=== PATIENT | female | born 1930 | race Caucasian/White ===

== ENCOUNTER 2016-12-06 11:29 | Emergency (ER) | payer MEDICARE, BC, OTHER ==
[~2016-12-06] VITALS: Ht 167.6 cm; Wt 75.0 kg
[~2016-12-06 11:29] MED LIST: BRIN1SUS2 LEFT EYE; CLON.1 PO; GUAN1 PO; METF850 PO; METR-1 PO; NITR0.4S SL; STOO100C PO; TIMO0.5S6 EACH EYE; TRAM50 PO
[2016-12-06 11:47] VITALS: BP 148/72; PULSE 95; RESP 18; TEMP 98.7; O2SAT 98
[2016-12-06] MEDS ORDERED: METO25TA3 PO (11:52)
[2016-12-06] MEDS ORDERED: ALPR0.25 PO (11:52)
[2016-12-06] MEDS ORDERED: METF850T PO (11:52)
[2016-12-06] MEDS ORDERED: ATOR20TA15 PO (11:52)
--- NOTE | 2016-12-06 12:01 | PD ---
HPI Chief Complaint: Medical Clearance Time Seen by Provider: 11:53 Travel History International Travel<30 days: No Contact w/Intl Traveler<30days: No Traveled to known affect area: No History of Present Illness HPI 86-year-old female presents to the emergency room via ambulance under a Martinez act initiated by [place] police department. According to Martinez act, patient called 911 2 times today stating that she did not know where she was. When the superintendent police showed up at her house, she was under the impression that she was at a furniture store and had to be reassured that she was home. Patient states she believes she was having a dream. Patient lives alone. She reports a fall 3-4 days ago where she lost her balance and struck the right side of her head and hip on the door. Patient denies loss of consciousness. States she was not bleeding and therefore did not come to the emergency room. She has been ambulatory since falling. Denies any new or worsening paresthesias. Patient has chronic right upper extremity paresthesia from shoulder fracture 2 years ago. History of hypertension, rheumatoid arthritis, and diabetes. Patient can state her name, birthday, the cattle and wheat farmer, and the day of the week. She stated it is 2015 and could not give the date. Denies suicidal or homicidal ideation. Patient uses a walker because of rheumatoid arthritis. PFSH Past Medical History Arthritis: Yes (RA) Heart Rhythm Problems: Yes Cancer: Yes (Skin) Cardiovascular Problems: Yes Chemotherapy: No Chest Pain: Yes Cerebrovascular Accident: No Diminished Hearing: Yes ([place]) Endocrine: Yes Fibromyalgia: Yes Gastrointestinal Disorders: Yes GERD: Yes Genitourinary: Yes Headaches: Yes Hypertension: Yes Immune Disorder: Yes (Lupus/ RA) Neurologic: Yes Respiratory: Yes Immunizations Current: Yes Migraines: Yes (with aura) Radiation Therapy: No Ulcer: Yes (COLITIS) Past Surgical History Cholecystectomy: Yes Gynecologic Surgery: Yes (Hysterectomy) Hysterectomy: Yes Oral Surgery: No Other Surgery: Yes (BLADDER LIFTED, BREAST REDUCTION) Social History Alcohol Use: No Tobacco Use: No Substance Use: No Allergies-Medications (Allergen,Severity, Reaction): Coded Allergies: Cipro (Verified Adverse Reaction, Severe, Nausea/Vomiting, 12/06/16) Sulfa (Verified Adverse Reaction, Severe, Nausea/Vomiting, 12/06/16) Aspirin (Verified Adverse Reaction, Unknown, GI, 12/06/16) COLITIS Reported Meds & Prescriptions Reported Meds & Active Scripts Active Reported Atorvastatin (Atorvastatin Calcium) 20 Mg Tab 20 Mg PO HS Metformin (Metformin HCl) 850 Mg Tab 850 Mg PO DAILY With a meal Metoprolol Tartrate 25 Mg Tab 25 Mg PO BID Alprazolam 0.25 Mg Tab 0.25 Mg PO TID PRN Review of Systems Except as stated in HPI: all other systems reviewed are Neg Physical Exam Narrative GENERAL: Well-nourished, well-developed, elderly female in no acute distress. Afebrile. SKIN: Warm and dry. There is a moderate amount of old appearing ecchymosis to the right temporal region. There is in mild to moderate area of ecchymosis to the right lateral hip. HEAD: Normocephalic. EYES: No scleral icterus. No injection or drainage. NECK: Supple, trachea midline. No JVD or lymphadenopathy. CARDIOVASCULAR: Regular rate and rhythm without murmurs, gallops, or rubs. RESPIRATORY: Breath sounds equal bilaterally. No accessory muscle use. NEUROLOGICAL: Awake and alert. Cranial nerves II through XII intact. Motor and sensory grossly within normal limits. Normal speech. PSYCHIATRIC: No delusional thought processes. No hallucinations. Data Data Last Documented VS Vital Signs Date Time Temp Pulse Resp B/P Pulse Ox O2 Delivery O2 Flow Rate FiO2 12/06/16 16:00 90 14 140/64 95 Room Air 12/06/16 11:47 98.7 Orders Complete Blood Count With Diff (12/06/16 11:52) Basic Metabolic Panel (Bmp) (12/06/16 11:52) Urinalysis - C+S If Indicated (12/06/16 11:52) Drug Screen, Random Urine (12/06/16 11:52) Alcohol (Ethanol) (12/06/16 11:52) Psych Screen (12/06/16 11:52) Ct Brain W/O Iv Contrast(Rout) (12/06/16 ) Hip, Uni(Ap&Lat) W Ap Pelvis (12/06/16 ) Labs Laboratory Tests Test 12/06/16 12/06/16 12:03 15:49 White Blood Count 7.5 TH/MM3 Red Blood Count 4.41 MIL/MM3 Hemoglobin 14.1 GM/DL Hematocrit 40.7 % Mean Corpuscular Volume 92.1 FL Mean Corpuscular Hemoglobin 32.0 PG Mean Corpuscular Hemoglobin 34.8 % Concent Red Cell Distribution Width 12.3 % Platelet Count 163 TH/MM3 Mean Platelet Volume 8.4 FL Neutrophils (%) (Auto) 60.2 % Lymphocytes (%) (Auto) 31.6 % Monocytes (%) (Auto) 5.0 % Eosinophils (%) (Auto) 2.7 % Basophils (%) (Auto) 0.5 % Neutrophils # (Auto) 4.5 TH/MM3 Lymphocytes # (Auto) 2.4 TH/MM3 Monocytes # (Auto) 0.4 TH/MM3 Eosinophils # (Auto) 0.2 TH/MM3 Basophils # (Auto) 0.0 TH/MM3 CBC Comment DIFF FINAL Differential Comment Sodium Level 140 MEQ/L Potassium Level 4.1 MEQ/L Chloride Level 106 MEQ/L Carbon Dioxide Level 27.7 MEQ/L Anion Gap 6 MEQ/L Blood Urea Nitrogen 15 MG/DL Creatinine 0.86 MG/DL Estimat Glomerular Filtration 62 ML/MIN Rate Random Glucose 121 MG/DL Calcium Level 9.4 MG/DL Ethyl Alcohol Level LESS THAN 3 MG/DL Urine Color YELLOW Urine Turbidity CLEAR Urine pH 5.0 Urine Specific Elizabeth 1.014 Urine Protein NEG mg/dL Urine Glucose (UA) NEG mg/dL Urine Ketones NEG mg/dL Urine Occult Blood NEG Urine Nitrite NEG Urine Bilirubin NEG Urine Urobilinogen LESS THAN 2.0 MG/DL Urine Leukocyte Esterase SMALL Urine RBC 1 /hpf Urine WBC 6 /hpf Urine Squamous Epithelial 1 /hpf Cells Urine Bacteria RARE /hpf Microscopic Urinalysis Comment CULT NOT INDICATED Urine Opiates Screen NEG Urine Barbiturates Screen NEG Urine Amphetamines Screen NEG Urine Benzodiazepines Screen POS Urine Cocaine Screen NEG Urine Cannabinoids Screen NEG MDM Medical Decision Making Medical Screen Exam Complete: Yes Emergency Medical Condition: Yes Medical Record Reviewed: Yes Differential Diagnosis Martinez act versus dementia versus Alzheimer's disease versus fall versus intracranial hemorrhage Narrative Course 86-year-old female presents to the emergency room the ambulance under a Martinez Act initiated by Police Department after patient called stating that she did not know where she was. She believes she was waking from a dream. Patient was Martinez acted out of fear that she is unable to care for herself as she lives alone. Denies suicidal or homicidal ideation. She states she just wants to go home and doesn't need to be here. Patient is alert and oriented. Vital signs stable. She can give her birthday, name, day of the week, location, and president. She wasn't able to give the correct year (2015) or date. She reports trip and fall 3-4 days ago but denies loss of consciousness. There is ecchymosis over the right temporal lobe and right hip. CT brain is negative for acute abnormality. She has been ambulatory and there is no significant right hip pain; x-ray of the hip is negative. CBC and BMP are completely unremarkable. Drug screen is positive for benzodiazepine, patient takes alprazolam at night for sleep. Alcohol is negative. UA shows no significant evidence of infection. She is medically clear for psychiatric evaluation. Patient is stable for discharge from psychiatric standpoint. There are no medical indications for admission at this time. She has a close family friend who visits the house several times daily to care for her and her son calls several times daily to speak with her. She is stable for discharge. Diagnosis Primary Impression: Medical clearance for psychiatric admission Referrals: Primary Care Physician Patient Instructions: General Instructions, Medical Clearance for Psychiatric Care (ED) Additional Instructions: Rest and drink plenty of fluids. Return to the emergency room for worsening symptoms. Disposition: 01 DISCHARGE HOME Condition: Stable Lianne Miller Dec 06, 2016 12:01
[2016-12-06 12:29] LABS: AUTOMATED NEUTROPHIL # 4.5 TH/MM3 (1.8-7.7); BASOPHIL % 0.5 % (0.0-2.0); EOSINOPHIL # 0.2 TH/MM3 (0-0.4); EOSINOPHIL % 2.7 % (0.0-4.0); HEMATOCRIT 40.7 % (35.0-46.0); HEMO FLAGS DIFF FINAL; LYMPH % 31.6 % (9.0-44.0); LYMPHOCYTE # 2.4 TH/MM3 (1.0-4.8); MEAN CELL VOLUME 92.1 FL (80.0-100.0); MEAN CORPUSCULAR HGB CONC 34.8 % (32.0-36.0); NEUT % 60.2 % (16.0-70.0); PLATELET COUNT 163 TH/MM3 (150-450); RED BLOOD COUNT 4.41 MIL/MM3 (4.00-5.30); RED CELL DISTRIBUTION WIDTH 12.3 % (11.6-17.2); WHITE BLOOD COUNT 7.5 TH/MM3 (4.0-11.0)
[2016-12-06 12:43] LABS: ANION GAP 6 MEQ/L (5-15); BICARBONATE 27.7 MEQ/L (21.0-32.0); BLOOD UREA NITROGEN 15 MG/DL (7-18); CHLORIDE 106 MEQ/L (98-107); GLOMERULAR FILTRATION RATE 62 ML/MIN (>89); POTASSIUM 4.1 MEQ/L (3.5-5.1); SODIUM (NA) 140 MEQ/L (136-145)
--- NOTE | 2016-12-06 12:57 | RADRPT ---
EXAM DATE/TIME: 12/06/2016 12:31 [facility] COMPARISON: CT BRAIN W/O CONTRAST, August 02, 2016, 10:54. INDICATIONS : Fall four days ago. RADIATION DOSE: 41.37 CTDIvol (mGy) MEDICAL HISTORY : Cardiovascular disease. Hypertension. Lupus. SURGICAL HISTORY : None. ENCOUNTER: Initial ACUITY: 4 - 6 days PAIN SCALE: 4/10 LOCATION: cranial TECHNIQUE: Multiple contiguous axial images were obtained of the head. Using automated exposure control and adj ustment of the mA and/or kV according to patient size, radiation dose was kept as low as reasonably a chievable to obtain optimal diagnostic quality images. FINDINGS: CEREBRUM: The ventricles are normal for age with diffuse moderate atrophic change. There is sulcal and ventricu lar prominence. There are chronic small vessel ischemic changes again noted. No evidence of midline s hift, mass lesion, hemorrhage or acute infarction. No extra-axial fluid collections are seen. POSTERIOR FOSSA: The cerebellum and brainstem are intact. The 4th ventricle is midline. The cerebellopontine angle i s unremarkable. EXTRACRANIAL: The visualized portion of the orbits is intact. SKULL: The calvaria is intact. No evidence of skull fracture. CONCLUSION: 1. No acute hemorrhage, mass or acute infarction. 2. Chronic atrophic change and small vessel ischemic change. Irvin Mcneal MD on December 06, 2016 at 12:53 Board Certified Radiologist. This report was verified electronically.
--- NOTE | 2016-12-06 14:27 | RADRPT ---
EXAM DATE/TIME: 12/06/2016 13:14 [facility] COMPARISON: No previous studies available for comparison. INDICATIONS : Fall. Pain right hip MEDICAL HISTORY : AMS SURGICAL HISTORY : unobtainable ENCOUNTER: Initial ACUITY: 1 day PAIN SCORE: 7/10 LOCATION: Right hip FINDINGS: Examination of the right hip was performed with AP Pelvis. The primary and secondary trabecular luis sam of the femoral neck is intact. The hip joint is of normal width without significant sclerosis or bony hypertrophy. The acetabulum is grossly intact. CONCLUSION: Negative trauma study. Irvin Mcneal MD on December 06, 2016 at 14:25 Board Certified Radiologist. This report was verified electronically.
[2016-12-06 16:00] VITALS: BP 140/64; PULSE 90; RESP 14; O2SAT 95
--- NOTE | 2016-12-06 16:06 | PD ---
History of Present Illness Chief Complaint: Medical Clearance Time Seen by Provider: 16:02 Travel History International Travel<30 Days: No Contact w/Intl Traveler<30days: No Known affected area: No Legal Status Legal Status: Martinez Act Martinez Act Signed By: Mya Quezada History of Present Illness: History of Present Illness 86-year-old female with no reported psychiatric history who presents to the emergency room via ambulance under a [place] act initiated by [place] police department. According to Martinez act, patient called 911 twice today stating that she did not know where she was and that she believed she was in a furniture store. Patient cleared up and was alert and oriented while the police were there but nevertheless she was brought to ED for evaluation. She reported that she had fallen a couple of days ago and hit her head. Patient has been medically cleared. As per EMR she has had no previous contact with [facility] psychiatric department. Patient is seen in main Ed. She is alert, oriented x4. She is able to name the President, hospital . She states " I made a mistake and I called the police. I woke up and I was confused but it went away". Speech is clear and able to answer questions appropriately. She is able to give me the phone number of her friend, Talita Donohue. There is no indication that she is internally preoccupied. Denies any hallucinations, delusions or paranoia. She denies any significant symptom of depression or anxiety. She is prescribed a low dose of Xanax which she has taken for many years. She reports sleeping well and eating well. Denies any suicidal or homicidal ideation, intent or plan. Telephone call to her son at [phone], who is her salesperson toy trains and accessories. he informs me that he speaks with his mother several times a day and that while the police were there she called him. He has no concerns regarding sending her home. She has a friend , Talita Donohue who checks on her several times a day as well. PFSH Past Medical History Arthritis: Yes (RA) Heart Rhythm Problems: Yes Cancer: Yes (Skin) Cardiovascular Problems: Yes Chemotherapy: No Chest Pain: Yes Cerebrovascular Accident: No Diminished Hearing: Yes ([place]) Endocrine: Yes Fibromyalgia: Yes Gastrointestinal Disorders: Yes GERD: Yes Genitourinary: Yes Headaches: Yes Hypertension: Yes Immune Disorder: Yes (Lupus/ RA) Neurologic: Yes Respiratory: Yes Immunizations Current: Yes Migraines: Yes (with aura) Radiation Therapy: No Ulcer: Yes (COLITIS) Past Surgical History Cholecystectomy: Yes Gynecologic Surgery: Yes (Hysterectomy) Hysterectomy: Yes Oral Surgery: No Other Surgery: Yes (BLADDER LIFTED, BREAST REDUCTION) Psychiatric History Psychiatric History Hx Psychiatric Treatment: Negative History of Inpatient Treatment: No Guns or firearms in home: No Social History Born in [place]. Came to [place] in 1953 and 2 years later moved to [facility]. x 5 years. Has one son who lives in [place]. 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 Hx Alcohol Use: No Hx Tobacco Use: No Hx Substance Use: No Hx of Substance Use Treatment: No Family Psychiatric History Negative Allergies-Medications (Allergen,Severity, Reaction): Coded Allergies: Cipro (Verified Adverse Reaction, Severe, Nausea/Vomiting, 12/06/16) Sulfa (Verified Adverse Reaction, Severe, Nausea/Vomiting, 12/06/16) Aspirin (Verified Adverse Reaction, Unknown, GI, 12/06/16) COLITIS Reported Meds & Prescriptions Reported Meds & Active Scripts Active Reported Atorvastatin (Atorvastatin Calcium) 20 Mg Tab 20 Mg PO HS Metformin (Metformin HCl) 850 Mg Tab 850 Mg PO DAILY With a meal Metoprolol Tartrate 25 Mg Tab 25 Mg PO BID Alprazolam 0.25 Mg Tab 0.25 Mg PO TID PRN Review of Systems Constitutional: DENIES: Diaphoretic episodes, Fatigue, Fever, Weight gain, Weight loss, Chills, Dizziness, Change in appetite, Night Sweats Endocrine: DENIES: Abnorml menstrual pattern, Heat/cold intolerance, Polydipsia , Polyuria, Polyphagia Eyes: DENIES: Blurred vision, Diplopia, Eye inflammation, Eye pain, Vision loss , Photosensitivity, Double Vision Ears, nose, mouth, throat: DENIES: Tinnitus, Hearing loss, Vertigo, Nasal discharge, Oral lesions, Throat pain, Hoarseness, Ear Pain, Running Nose, Epistaxis, Sinus Pain, Toothache, Odynophagia Respiratory: DENIES: Apneas, Cough, Snoring, Wheezing, Hemoptysis, Sputum production, Shortness of breath Cardiovascular: DENIES: Chest pain, Palpitations, Syncope, Dyspnea on Exertion , PND, Lower Extremity Edema, Orthopnea, Claudication Gastrointestinal: COMPLAINS OF: Abdominal pain Genitourinary: DENIES: Abnormal vaginal bleeding, Dysmenorrhea, Dyspareunia, Sexual dysfunction, Urinary frequency, Urinary incontinence, Urgency, Hematuria , Dysuria, Nocturia, Vaginal discharge Musculoskeletal: COMPLAINS OF: Joint pain Integumentary: DENIES: Abnormal pigmentation, Pruritus, Rash, Nail changes, Breast masses, Breast skin changes, Nipple discharge Hematologic/lymphatic: COMPLAINS OF: Bruising (right side of face s/p fall) Immunologic/allergic: DENIES: Eczema, Urticaria Neurologic: COMPLAINS OF: Poor Balance Psychiatric: COMPLAINS OF: Anxiety, DENIES: Confusion, Mood changes, Depression, Hallucinations, Agitation, Suicidal Ideation, Homicidal Ideation, Delusions MDM Medical Decision Making Medical Record Reviewed: Yes Assessment/Plan 86 emma old female who is under a BA after she woke up and experienced an episode of confusion . She called the police who BA and brought her to the hospital for evaluation as she reported to them that she had fallen a few days ago. She was medically cleared. At this time she does not present any criteria for BA. She does not present any confusion at this time. She has help at home and her son has no concerns if she were to be discharged.. She presents no criteria for BA. Will lift and cleared from psychiatry for discharge. Orders Complete Blood Count With Diff (12/06/16 11:52) Basic Metabolic Panel (Bmp) (12/06/16 11:52) Urinalysis - C+S If Indicated (12/06/16 11:52) Drug Screen, Random Urine (12/06/16 11:52) Alcohol (Ethanol) (12/06/16 11:52) Psych Screen (12/06/16 11:52) Ct Brain W/O Iv Contrast(Rout) (12/06/16 ) Hip, Uni(Ap&Lat) W Ap Pelvis (12/06/16 ) Results Vital Signs Date Time Temp Pulse Resp B/P Pulse Ox O2 Delivery O2 Flow Rate FiO2 12/06/16 11:47 98.7 95 18 148/72 98 Laboratory Tests Test 2/7/17 12:03 White Blood Count 7.5 Red Blood Count 4.41 Hemoglobin 14.1 Hematocrit 40.7 Mean Corpuscular Volume 92.1 Mean Corpuscular Hemoglobin 32.0 Mean Corpuscular Hemoglobin 34.8 Concent Red Cell Distribution Width 12.3 Platelet Count 163 Mean Platelet Volume 8.4 Neutrophils (%) (Auto) 60.2 Lymphocytes (%) (Auto) 31.6 Monocytes (%) (Auto) 5.0 Eosinophils (%) (Auto) 2.7 Basophils (%) (Auto) 0.5 Neutrophils # (Auto) 4.5 Lymphocytes # (Auto) 2.4 Monocytes # (Auto) 0.4 Eosinophils # (Auto) 0.2 Basophils # (Auto) 0.0 CBC Comment DIFF FINAL Differential Comment Sodium Level 140 Potassium Level 4.1 Chloride Level 106 Carbon Dioxide Level 27.7 Anion Gap 6 Blood Urea Nitrogen 15 Creatinine 0.86 Estimat Glomerular Filtration 62 Rate Random Glucose 121 Calcium Level 9.4 Ethyl Alcohol Level LESS THAN 3 Diagnosis Primary Impression: Anxiety Psychiatrically Cleared: Yes Condition: Stable Malika Bergman Dec 06, 2016 16:06
[2016-12-06 16:14] LABS: AMPHETAMINE, URINE NEG (NEG); BARBITURATES, URINE NEG (NEG); COCAINE, URINE NEG (NEG)
[2016-12-06 16:25] LABS: BACTERIA, URINE RARE /hpf; BLOOD, URINE NEG (NEG); COMMENT (UR) CULT NOT INDICATED; CULTURE IF INDICATED CULT NOT INDICATED; GLUCOSE,URINE NEG (NEG); KETONE, URINE NEG (NEG); NITRITE,URINE NEG (NEG); SQUAMOUS EPITHELIAL CELL URINE 1 /hpf (0-5); URINE COLOR YELLOW (YELLW/STRAW)
== END 2016-12-06 17:13 | disposition home or self-care (01) ==
LOC: NEDAMB 11:29
DX: F41.9 Anxiety disorder, unspecified (principal); S00.83XA Contusion of other part of head, initial encounter; S70.01XA Contusion of right hip, initial encounter; M79.7 Fibromyalgia; K21.9 Gastro-esophageal reflux disease without esophagitis; I10 Essential (primary) hypertension; M32.9 Systemic lupus erythematosus, unspecified; M06.9 Rheumatoid arthritis, unspecified; E11.9 Type 2 diabetes mellitus without complications; W19.XXXA Unspecified fall, initial encounter
CPT/HCPCS: 70450; 73502; 80048; 80307; 80320; 81001; 85025